=== PATIENT | male | born 1965 | race Caucasian/White ===

== ENCOUNTER 2018-12-01 20:41 | Inpatient (IN) | payer SELFPAY ==
[~2018-12-01] VITALS: Ht 175.3 cm; Wt 79.5 kg
[2018-12-01] MEDS ORDERED: ALBUTEROL 0.083% (NEB) 2.5 MG/3 ML AMP NEB STA (20:43)
[2018-12-01] MEDS ORDERED: IPRATROPIUM (NEB) 0.5 MG/2.5 ML AMP NEB STA (20:43)
[2018-12-01] MEDS ORDERED: METHYLPREDNISOLONE 125 MG INJ IV STA (20:43)
[2018-12-01] MEDS ORDERED: ACETAMINOPHEN 325 MG TAB PO PRN ×2 (22:00→23:00)
[2018-12-01] MEDS ORDERED: ONDANSETRON 4 MG INJ IV PRN ×2 (22:00→23:00)
--- NOTE | 2018-12-01 22:16 | ERD ---
ER Documentation Chief Complaint Chief Complaint BIB RA81 for CP/SOB since 2 hours ago HPI Patient is a 53-year-old male with asthma who presents with chest pain and shortness of breath. The patient was wheezing. He was given albuterol by paramedics. His symptoms started 2 hours ago. He was brought in by ambulance. He was given aspirin nitroglycerin as well. We received a call from paramedics for possible STEMI at 2023. The patient arrived at 2036. Upon review of old medical records this is the patient's first visit to the emergency department. ROS All systems reviewed and are negative except as per history of present illness. PMhx/Soc Medical and Surgical Hx: pt denies Surgical Hx Hx Respiratory Disorders: Yes (asthma) Hx Alcohol Use: Yes Hx Substance Use: Yes (meth, cocaine) Hx Tobacco Use: Yes Smoking Status: Former smoker FmHx Patient is adopted and does not know family history Physical Exam Vitals Vital Signs Date Temp Pulse Resp B/P (MAP) Pulse Ox O2 O2 Flow FiO2 Time Delivery Rate 12/01/18 101 22 100 21 21:05 12/01/18 98.0 100 24 127/89 100 20:47 (102) Physical Exam Const: Moderate distress Head: Atraumatic Eyes: Normal Conjunctiva ENT: Normal External Ears, Nose and Mouth. Neck: Full range of motion. No meningismus. Resp: Wheezing diffusely with rhonchorous breath sounds Cardio: Regular rate and rhythm, no murmurs Abd: Soft, non tender, non distended. Normal bowel sounds Skin: No petechiae or rashes Back: No midline or flank tenderness Ext: No cyanosis, or edema Neur: Awake and alert Psych: Normal Mood and Affect Result Diagram: 12/01/18204412/01/182044 Results 24 hrs Laboratory Tests Test 12/01/18 20:45 White Blood Count 6.7 10^3/ul Red Blood Count 5.07 10^6/ul Hemoglobin 14.9 g/dl Hematocrit 45.6 % Mean Corpuscular Volume 89.9 fl Mean Corpuscular Hemoglobin 29.4 pg Mean Corpuscular Hemoglobin Concent 32.7 g/dl Red Cell Distribution Width 12.4 % Platelet Count 204 10^3/UL Mean Platelet Volume 11.1 fl Immature Granulocytes % 0.400 % Neutrophils % 41.7 % Lymphocytes % 37.3 % Monocytes % 9.1 % Eosinophils % 10.9 % Basophils % 0.6 % Nucleated Red Blood Cells % 0.0 /100WBC Immature Granulocytes # 0.030 10^3/ul Neutrophils # 2.8 10^3/ul Lymphocytes # 2.5 10^3/ul Monocytes # 0.6 10^3/ul Eosinophils # 0.7 10^3/ul Basophils # 0.0 10^3/ul Nucleated Red Blood Cells # 0.0 10^3/ul Prothrombin Time 12.5 Sec Prothrombin Time Ratio 1.0 INR International Normalized Ratio 0.92 Activated Partial Thromboplast Time 27.5 Sec Sodium Level 138 mmol/L Potassium Level 3.8 mmol/L Chloride Level 99 mmol/L Carbon Dioxide Level 36 mmol/L Anion Gap 3 Blood Urea Nitrogen 14 mg/dl Creatinine 0.97 mg/dl Est Glomerular Filtrat Rate mL/min > 60 mL/min Glucose Level 115 mg/dl POC Venous Lactate 0.9 mmol/L Calcium Level 9.4 mg/dl Total Bilirubin 0.2 mg/dl Direct Bilirubin 0.00 mg/dl Indirect Bilirubin 0.2 mg/dl Aspartate Amino Transf (AST/SGOT) 27 IU/L Alanine Aminotransferase (ALT/SGPT) 21 IU/L Alkaline Phosphatase 82 IU/L Troponin I < 0.012 ng/ml Total Protein 7.2 g/dl Albumin 4.0 g/dl Globulin 3.20 g/dl Albumin/Globulin Ratio 1.25 Current Medications Medications Dose Sig/Emir Start Time Status Last (Trade) Ordered Route PRN Stop Time Admin Dose Reason Admin Albuterol 5 mg ONCE STAT 12/01/18 DC 12/01/18 (Proventil NEB 20:43 21:04 0.083% (Neb)) 12/01/18 20:45 Ipratropium 0.5 mg ONCE STAT 12/01/18 DC 12/01/18 [place] NEB 20:43 21:04 (Atrovent 12/01/18 20:45 0.02% (Neb)) 125 mg ONCE STAT 12/01/18 DC 12/01/18 Methylprednis IV 20:43 21:00 olone Sodium 12/01/18 20:45 Succinate (Solu-Medrol) Ondansetron 4 mg ER BRIDGE 12/01/18 HCl (Zofran PRN IV 22:00 Inj) NAUSEA/VOMITI 12/02/18 21:59 NG 650 mg ER BRIDGE 12/01/18 Acetaminophen PRN PO 22:00 (Tylenol .MILD PAIN 12/02/18 21:59 Tab) 1-3 OR TEMP Procedures/MDM EKG read by me: Rate/Rhythm: Sinus tachycardia Intervals: Normal Impression: Tachycardia without ST elevations Chest x-ray read by radiology shows no pneumonia. Smoking Cessation Therapy: Pt. was lectured for greater than 3 minutes on the health risks of continued smoking and the benefits of cessation. Patient is a 53-year-old male with asthma and smoking history who presents with chest pain and shortness of breath. The patient was given albuterol, Atrovent, and Solu-Medrol for acute asthma exacerbation. I doubt pneumonia, pneumothorax, pulmonary embolism, or aortic dissection. There is a concern for potential acute coronary syndrome but I doubt STEMI. The patient was already given aspirin and nitroglycerin by paramedics. The patient will be admitted to the care of Dr. Norris from the panel team to a telemetry inpatient bed. The patient has a history of smoking but also cocaine and methamphetamine use. Paramedics said there was a possible STEMI in the field but I reviewed to utility hand EKGs which were negative for STEMI. Her own EKG in the emergency department shows no sign of STEMI. Critical Care: Time: 35 minutes excluding all billable procedures. Treatments/Evaluations: Close monitoring and treatment of unstable vital signs, cardiorespiratory, and neurologic status, while maintaining tight balance of fluid, respiratory, and cardiac interventions. Departure Diagnosis: Primary Impression: Asthma Asthma severity: unspecified severity Asthma persistence: unspecified Asthma complication type: unspecified Qualified Codes: J45.909 - Unspecified asthma, uncomplicated Additional Impression: Chest pain Chest pain type: unspecified Qualified Codes: R07.9 - Chest pain, unspecified Condition: GIOVANI Nguyen MD Dec 01, 2018 22:16
[2018-12-01] MEDS ORDERED: HYDROCODONE/APAP (5/325) TAB PO PRN (23:00)
[2018-12-01] MEDS ORDERED: BUDESONIDE (NEB) 0.5MG/2ML AMP HHN SCH (23:00)
[2018-12-01] MEDS ORDERED: ATORVASTATIN 80 MG TAB PO SCH (23:00)
[2018-12-01] MEDS ORDERED: morphine 2 MG INJ IV PRN (23:00)
[2018-12-01] MEDS ORDERED: NITROGLYCERIN (SL) 0.4 MG TAB SL PRN (23:00)
[2018-12-01] MEDS ORDERED: NACL 0.9% 3 ML SYG IV SCH (23:00)
[2018-12-01] MEDS ORDERED: ALBUTEROL/IPRATROPIUM (NEB) 3 ML AMP HHN PRN (23:00)
--- NOTE | 2018-12-01 23:02 | HP ---
Date/Time of Note Date/Time of Note DATE: 12/01/18 TIME: 23:02 Assessment/Plan VTE Prophylaxis Pharmacological prophylaxis: other Lines/Catheters IV Catheter Type (from Nrs): Saline Lock Assessment/Plan Hospital Course Objective Physical exam General: Patient is laying in bed and answers questions appropriately Mentation: Patient is alert and oriented 4, Head: Normocephalic atraumatic Eyes: EOMI, pupils reactive to light Neck: Supple, nontender, midline Respiratory: Clear to auscultation bilaterally Cardiovascular: regular rate, no obvious murmurs Gastrointestinal: non-tender to palpation, bowel sounds heard. Neurological: Moves all extremities spontaneously Skin: No new skin lesions Assessment and plan Chest pain -STEMI ruled out by ER physician -Chest pain has resolved -Trend troponins -Echo -Nitro as needed -Pain control as needed Shortness of breath -Questionable asthma exacerbation however patient is perfectly fine breathing on room air -Chest x-ray shows interstitial infiltrates possibly representing edema or changes of interstitial lung disease, this is likely secondary to patient's drug use as well as asthma, I doubt infection given no fever or white count however will start patient on azithromycin -DuoNeb and budesonide nebulizer -Received steroid in the ED, however I am uncertain if patient needs to continue as he is appearing perfectly fine with no shortness of breath, will reassess in the a.m. Excessive sleepiness -Patient is easily arousable and alert and oriented, however excessively sleepy -No pain meds and patient denies using illicit substances today, however given his history of drug abuse, will get a urine drug screen. Disposition -Rule out chest pain, trend troponins, treat asthma. Result Diagram: 12/01/18204412/01/182044 Results 24hrs Laboratory Tests Test 12/01/18 20:45 12/01/18 22:51 White Blood Count 6.7 Red Blood Count 5.07 Hemoglobin 14.9 Hematocrit 45.6 Mean Corpuscular Volume 89.9 Mean Corpuscular Hemoglobin 29.4 Mean Corpuscular Hemoglobin Concent 32.7 Red Cell Distribution Width 12.4 Platelet Count 204 Mean Platelet Volume 11.1 H Immature Granulocytes % 0.400 Neutrophils % 41.7 Lymphocytes % 37.3 Monocytes % 9.1 Eosinophils % 10.9 H Basophils % 0.6 Nucleated Red Blood Cells % 0.0 Immature Granulocytes # 0.030 Neutrophils # 2.8 Lymphocytes # 2.5 Monocytes # 0.6 Eosinophils # 0.7 H Basophils # 0.0 Nucleated Red Blood Cells # 0.0 Prothrombin Time 12.5 Prothrombin Time Ratio 1.0 INR International Normalized Ratio 0.92 Activated Partial Thromboplast Time 27.5 Sodium Level 138 Potassium Level 3.8 Chloride Level 99 Carbon Dioxide Level 36 H Anion Gap 3 L Blood Urea Nitrogen 14 Creatinine 0.97 Est Glomerular Filtrat Rate mL/min > 60 Glucose Level 115 POC Venous Lactate 0.9 Calcium Level 9.4 Total Bilirubin 0.2 Direct Bilirubin 0.00 Indirect Bilirubin 0.2 Aspartate Amino Transf (AST/SGOT) 27 Alanine Aminotransferase (ALT/SGPT) 21 Alkaline Phosphatase 82 Troponin I < 0.012 Total Protein 7.2 Albumin 4.0 Globulin 3.20 Albumin/Globulin Ratio 1.25 Urine Color STRAW Urine Clarity CLEAR Urine pH 7.0 Urine Specific [place] 1.008 Urine Ketones NEGATIVE Urine Nitrite NEGATIVE Urine Bilirubin NEGATIVE Urine Urobilinogen NEGATIVE Urine Leukocyte Esterase NEGATIVE Urine Hemoglobin NEGATIVE Urine Glucose NEGATIVE Urine Total Protein NEGATIVE HPI/ROS Admit Date/Time Admit Date/Time Hx of Present Illness Patient is a male with a past medical history significant for asthma and substance abuse who presents to [facility] by ambulance for acute onset chest pain and shortness of breath. Patient was originally set as code STEMI by ambulance but was deemed not ST elevated [place] by ER physician. Patient currently is very sleepy but otherwise has absolutely no chest pain or shortness of breath. Patient was given steroids, breathing treatments in the ED. Aspirin and nitroglycerin were given on route by paramedics. Patient states that he was not doing anything in particular and the chest pain started abruptly about 30 minutes before paramedics arrived. Patient denies using any narcotics or other illicit substances today. Patient denies shortness of breath, chest pain, headache, nausea, abdominal pain, leg pain PMH/Family/Social Past Medical History Medications Current Medications Ondansetron HCl (Zofran Inj) 4 mg ER BRIDGE PRN IV NAUSEA/VOMITING; Start 12/01/18 at 22:00; Stop 12/02/18 at 21:59 Acetaminophen (Tylenol Tab) 650 mg ER BRIDGE PRN PO .MILD PAIN 1-3 OR TEMP; Start 12/01/18 at 22:00; Stop 12/02/18 at 21:59 IV Flush (NS 3 ml) 3 ml PER PROTOCOL IV ; Start 12/01/18 at 23:00; Status UNV Ondansetron HCl (Zofran Inj) 4 mg Q6H PRN IV NAUSEA/VOMITING; Start 12/01/18 at 23:00; Status UNV Nitroglycerin (Nitroglycerin (Sl Tab) 0.4 Mg) 1 tab Q5M PRN SL .CHEST PAIN; Start 12/01/18 at 23:00; Status UNV Acetaminophen (Tylenol Tab) 650 mg Q6H PRN PO .PAIN 1-3 OR TEMP; Start 12/01/18 at 23:00; Status UNV Acetaminophen/ Hydrocodone Bitart ([place] (5/325)) 1 tab Q6H PRN PO .PAIN 4-6; Start 12/01/18 at 23:00; Status UNV Morphine Sulfate (morphine) 2 mg Q4H PRN IV .PAIN 7-10; Start 12/01/18 at 23:00; Status UNV Albuterol/ Ipratropium (Duoneb) 3 ml Q6HWA RESP THERAPY HHN ; Start 12/02/18 at 08:00; Status UNV Albuterol/ Ipratropium (Duoneb) 3 ml Q2H RESP THERAPY PRN HHN wheezing; Start 12/01/18 at 23:00; Status UNV Budesonide (Pulmicort (Neb)) 0.5 mg BID RESP THERAPY HHN ; Start 12/01/18 at 23:00; Status UNV Aspirin (Aspirin) 81 mg DAILY PO ; Start 12/02/18 at 09:00; Status UNV Atorvastatin Calcium (Lipitor) 80 mg HS PO ; Start 12/01/18 at 23:00; Status UNV Coded Allergies: No Known Allergy (Unverified , 12/01/18) Social History Smoking Status: Former smoker Exam/Review of Systems Vital Signs Vitals Vital Signs Date Temp Pulse Resp B/P (MAP) Pulse Ox O2 O2 Flow FiO2 Time Delivery Rate 12/01/18 97.5 78 22 137/92 97 Room Air 22:59 (107) 12/01/18 21 21:05 CADEN DELEON Dec 01, 2018 23:02
[2018-12-01] MEDS ORDERED: AZITHROMYCIN 500MG/NS (PMX) 250 ML IVPB SCH (23:30)
[2018-12-02 00:32] VITALS: PULSE 85
[2018-12-02 01:16] VITALS: Ht 175.3 cm; Wt 79.5 kg
[2018-12-02 01:30] VITALS: BP 149/103; PULSE 89; RESP 20
[2018-12-02] MEDS ORDERED: hydrALAzine 20 MG INJ IV PRN (01:30)
[2018-12-02] MEDS: BUDESONIDE (NEB) 0.5MG/2ML AMP HHN SCH ×2 (01:59→08:25)
[2018-12-02 04:00] VITALS: BP 129/93; PULSE 101; RESP 20
[2018-12-02 04:20] VITALS: PULSE 96
[2018-12-02 07:22] VITALS: BP 132/84; PULSE 94; RESP 16
[2018-12-02 08:00] VITALS: PULSE 93
[2018-12-02] MEDS ORDERED: ALBUTEROL/IPRATROPIUM (NEB) 3 ML AMP HHN SCH (08:00)
[2018-12-02] MEDS ORDERED: predniSONE 20 MG TAB PO SCH (09:00)
[2018-12-02] MEDS ORDERED: ASPIRIN 81 MG TAB PO SCH (09:00)
--- NOTE | 2018-12-02 09:33 | PDOCDIS ---
Discharge Instructions CONDITION [id number] Patient Condition: [id number] Good HOME CARE INSTRUCTIONS: [id number] Diet Instructions: [id number] Regular ACTIVITY: [id number] Activity Restrictions: [id number] No Restrictions FOLLOW UP/APPOINTMENTS Follow-up Plan FOLLOW UP WITH YOUR PCP IN 1-2 WEEKS TENA CRISTOBAL Dec 02, 2018 09:33
[2018-12-02] MEDS ORDERED: ALBU8.5H8 INH (10:59)
--- NOTE | 2018-12-02 16:47 | DS ---
Date/Time of Note Date/Time of Note DATE: 12/02/18 TIME: 16:45 Discharge Summary Admission/Discharge Info Admit Date/Time Dec 01, 2018 at 21:52 Discharge Date/Time Dec 02, 2018 at 11:43 Discharge Diagnosis Chest pain secondary to substance abuse ACS ruled out Asthma DC with albuterol No indication for antibiotics or steroid Polysubstance abuse U tox positive for amphetamines, cocaine, opiates and marijuana Cessation advised Patient Condition: Good Hospital Course Patient is a 53-year-old male with a history of asthma and substance abuse, patient presents with shortness of breath and chest pain, U tox was positive for multiple substances. ACS was ruled out cessation of drug abuse was recommended, on day of discharge patient's vitals, labs of exam are stable. Home Meds Active Scripts Albuterol Sulfate* (Proair HFA*) 8.5 Gm Hfa.aer.ad, 2 PUFF INH Q4H PRN for WHEEZING AND SOB, #1 INHALER Prov:TENA CRISTOBAL 12/02/18 Follow-up Plan FOLLOW UP WITH YOUR PCP IN 1-2 WEEKS Primary Care Provider Care Physician No Primary Time spent on discharge: > 30 minutes TENA CRISTOBAL Dec 02, 2018 16:47
== END 2018-12-02 11:43 | disposition home or self-care (01) | DRG 897 ==
LOC: E/R 20:41 → TEL 21:52
PROVIDERS: ADMIT Internal Medicine; ATTEND Internal Medicine
DX: F15.188 Other stimulant abuse with other stimulant-induced disorder (principal); F11.188 Opioid abuse with other opioid-induced disorder; F14.188 Cocaine abuse with other cocaine-induced disorder; F12.188 Cannabis abuse with other cannabis-induced disorder; R07.89 Other chest pain; J45.909 Unspecified asthma, uncomplicated; Z87.891 Personal history of nicotine dependence
CPT/HCPCS: 36415; 71045; 80053; 80061; 80307; 81003; 83036; 83605; 83735; 84443; 84484; 85025; 85610; 85730; 87040; 87086; 87400; 93005; 94640; 94644; 94664; 96374; J0456; J2930